=== PATIENT | female | born 1965 | race Caucasian/White ===

== ENCOUNTER 2022-12-05 11:30 | Day surgery (SDC) | payer OTHER, SELFPAY ==
[2022-12-05 11:50] VITALS: BMI 38.2
[2022-12-05 11:58] VITALS: BP 130/94; PULSE 96; RESP 16; TEMP 36.4; O2SAT 94
[2022-12-05] MEDS: LACTATED RINGERS 1,000 ML 150 ML IV (12:13)
--- NOTE | 2022-12-05 12:58 | PM.HP.1 ---
History of Present Illness History of Present Illness Date Patient Seen: 12/05/22 Time Patient Seen: 12:58 Chief complaint: Colonoscopy Narrative: The patient presents for colorectal screening. They have never had any previous examination for such. No personal or family history of colon cancer. On further history denies any recent gastrointestinal symptoms. No nausea, vomiting, abdominal pain, loss of appetite, unexplained weight loss, change in bowel habits, or blood per rectum. [facility] Medical History Pre-diabetes Hypertension Hypercholesteremia Social History household members: spouse Smoking Status: Former smoker alcohol intake: current Meds Home Medications and Allergies Home Medications Medication Instructions Recorded Confirmed Type atorvastatin 40 mg tablet 40 mg PO DAILY 12/04/22 12/05/22 History metformin 500 mg tablet 500 mg PO BID 12/04/22 12/05/22 History telmisartan 80 1 tab PO DAILY 12/04/22 12/05/22 History mg-hydrochlorothiazide 12.5 mg tablet (Micardis HCT) Allergies Allergy/AdvReac Type Severity Reaction Status Date / Time No Known Drug Allergies Allergy Verified 12/05/22 11:47 Exam Vital Signs (past 8 hours): - 12/05/22 11:58 Temperature 97.5 F L Pulse Rate 96 H Respiratory Rate 16 Blood Pressure 130/94 H Pulse Oximetry 94 Oxygen Delivery Method Room Air Oxygen Delivery Method Room Air Narrative Exam Narrative: General adult woman alert oriented no acute distress Abdomen soft nontender nondistended Assessment & Plan Assessment & Plan narrative: The patient requires colorectal screening and colonoscopy is recommended. Technical details were discussed. Risks, benefits, alternatives explained. Risks including but not limited to myocardial infarction, aspiration, bleeding, pain, missed lesion, incomplete examination, need for further radiographic studies, colonic perforation, and need for major abdominal surgery were discussed. All questions were answered to their satisfaction, and they are in agreement with this plan.
[2022-12-05 13:22] VITALS: BP 112/77; PULSE 88; RESP 28; O2SAT 93
--- NOTE | 2022-12-05 13:25 | PM.OP.COLON ---
Operative Date/Time/Diagnoses Date of procedure: 12/05/22 Time of procedure: 13:25 Pre-op diagnosis: Colorectal screening Post-op diagnosis: same Procedure & Clinicians Study performed: Colonoscopy Same procedure as scheduled: Yes Indications: Colorectal screening Surgeon: Alton Bruner Procedure Notes Procedure in detail: The history and physical was performed/updated and the patient is ASA class is 2. The procedure was discussed in detail with the patient. Potential risks complications including infection, bleeding, missed diagnosis, perforation, need for surgery, and were explained. Their questions were answered and informed consent was obtained. Patient was brought to the procedure room and placed standard monitoring equipment. The patient's vital signs were monitored continuously throughout the entire procedure. Prior to starting time-out was performed. The patient was placed in the left lateral recumbent position. Procedural sedation was administered by anesthesia. Examination began with a thorough inspection of the perianal area there was no evidence of fissures, fistulae, external hemorrhoids or cutaneous malignancy. The colonoscopy scope was then placed into the anal canal and was advanced to the cecum, which was identified by the ileocecal valve, the appendiceal orifice and the confluence of the taenia. The scope was then slowly withdrawn examining colon thoroughly in all directions, irrigating it of any residual stool. Unremarkable colonoscopy. No polyps, masses or inflammation. Internal hemorrhoids grade 1 The patient tolerated the procedure well. They will be discharged once criteria are met. The prep was of good/excellent quality. The withdrawl time was 6 minutes. Specimen(s): none sent Impression: Normal colonoscopy Post-procedure Recommendations: Colonoscopy in 10 years Disposition: same day surgery
[2022-12-05 13:27] VITALS: BP 111/75; PULSE 81; RESP 25; O2SAT 96
[2022-12-05 13:32] VITALS: BP 112/80; PULSE 81; RESP 17; O2SAT 95
[2022-12-05 13:39] VITALS: BP 114/85; PULSE 86; RESP 25; TEMP 36.7; O2SAT 93
== END 2022-12-05 14:04 | disposition home or self-care (01) ==
PROVIDERS: PCP Student in an Organized Health Care Education/Training Program; Referring Provider Surgery; Visit Provider Surgery
PROC: 0DJD8ZZ Inspection of Lower Intestinal Tract, Via Natural or Artificial Opening Endoscopic (ICD-10-PCS; CPT 45378; principal; 2022-12-05 12:45)
DX: Z12.11 Encounter for screening for malignant neoplasm of colon (principal); K64.0 First degree hemorrhoids
CPT/HCPCS: 45378; J2704